=== PATIENT | female | born 1980 | race Caucasian/White ===

== ENCOUNTER 2016-10-08 21:25 | Emergency (ER) | payer BC ==
[2016-10-08] MEDS ORDERED: Sodium Chloride 0.9% 10 ML Syringe FLUSH PRN (21:31)
[2016-10-08] MEDS ORDERED: Sodium Chloride 0.9% 1,000 ML IV ONE ×2 (21:54→23:00)
[2016-10-08] MEDS ORDERED: Ondansetron 4 MG/2 ML SDV IVPUSH ONE (21:55)
--- NOTE | 2016-10-08 22:00 | EDM.PDOC ---
ED HPI GENERAL MEDICAL PROBLEM - General Chief Complaint: Headache Stated Complaint: headache Time Seen by Provider: 10/08/16 21:44 Source of Information: Reports: Patient History Limitations: Reports: No Limitations - History of Present Illness INITIAL COMMENTS - FREE TEXT/NARRATIVE: Patient complains of headache and photophobia since two evenings ago when she fell and reportedly hit her head on a futon. No LOC. Has tenderness right forehead. Complains of right frontal headache. Also has had nausea and dry heaves. Pain has been constant/unchanging. No history of migraines or similar pain in past. Says she has tried ibuprofen as well as tylenol without any improvement. No bowel changes. No fevers/chills. Denies vision/hearing changes. No dental/jaw /nasal complaints. Denies neck pain. No neuro changes reported. When asked if she has any chronic medical issues patient denied any active issues. Review of records shows prior diagnoses of anxiety/panic disorder as well as ETOH misuse. 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: Psychiatric History: Reports: Anxiety, Panic Attack Social & Family History - Tobacco Use Smoking Status *Q: Current Every Day Smoker Years of Tobacco use: 19 Packs/Tins Daily: 0.5 Second Hand Smoke Exposure: Yes - Alcohol Use Days Per Week of Alcohol Use: 1 (No previous DWIs, problems with alcohol abuse, etc.) Number of Drinks Per Day: 8 (Usually beer, however occasional hard liquor ) Total Drinks Per Week: 8 - Recreational Drug Use Recreational Drug Use: No Drug Use in Last 12 Months: No - Living Situation & Occupation Living situation: Reports: , with Family Occupation: Employed ED ROS GENERAL - Review of Systems Review Of Systems: See Below Constitutional: Reports: No Symptoms HEENT: Reports: No Symptoms. Denies: Eye Pain, Vertigo, Vision Change Respiratory: Reports: No Symptoms Cardiovascular: Reports: No Symptoms GI/Abdominal: Reports: Nausea, Vomiting. Denies: Abdominal Pain, Constipation, Diarrhea : Reports: No Symptoms Musculoskeletal: Reports: No Symptoms Skin: Reports: No Symptoms Neurological: Reports: Headache. Denies: Confusion, Dizziness, Numbness, Paresthesia, Pre-Existing Deficit, Seizure, Syncope, Tingling, Tremors, Trouble Speaking, Difficulty Walking, Weakness, Change in Speech, Gait Disturbance Psychiatric: Reports: No Symptoms - Physical Exam Exam: See Below Exam Limited By: No Limitations General Appearance: Alert, WD/WN, Other (has blanket and ice bag over face) Eye Exam: Bilateral Eye: EOMI, PERRL Ears: Normal External Exam, Normal Canal, Hearing Grossly Normal, Normal TMs Nose: Normal Inspection, Normal Mucosa, Nasal Drainage Throat/Mouth: Normal Inspection, Normal Lips, Normal Teeth, Normal Gums, Normal Oropharynx, Normal Voice, No Airway Compromise Head Exam: Facial Tenderness (just above and lateral to right brow, very mild swelling. ). No: Facial Ecchymosis, Facial Lacerations Neck: Normal Inspection, Supple, Non-Tender, Full Range of Motion. No: Lymphadenopathy (L), Lymphadenopathy (R) Respiratory/Chest: No Respiratory Distress, Lungs Clear, Normal Breath Sounds, No Accessory Muscle Use, Chest Non-Tender Cardiovascular: Normal Peripheral Pulses, Regular Rate, Rhythm, No Edema, No Murmur GI/Abdominal: Normal Bowel Sounds, Soft, Non-Tender, No Distention (Female) Exam: Deferred Rectal (Female) Exam: Deferred Neuro Exam (Abbreviated): Alert, Oriented, Normal Cognition, No Motor/Sensory Deficits Extremities: Normal Inspection, Normal Range of Motion, Non-Tender, No Pedal Edema, Normal Capillary Refill Psychiatric: Flat Affect Skin Exam: Warm, Dry, Intact, Normal Color Course - Vital Signs Last Recorded V/S: Last Vital Signs Temp 37.0 C 10/08/16 21:28 Pulse 73 10/08/16 23:00 Resp 14 10/08/16 23:00 BP 103/68 10/08/16 23:00 Pulse Ox 100 10/08/16 23:00 - Orders/Labs/Meds Orders: Active Orders 24 hr Category Date Time Status Peripheral IV Care [RC] . DIRECTED Care 10/08/16 21:31 Active Head wo Cont [CT] Stat Exams 10/08/16 21:30 Taken UA W/MICROSCOPIC [URIN] Stat Lab 10/09/16 00:00 Ordered Peripheral IV Insertion Adult [OM.PC] Routine Oth 10/08/16 21:31 Ordered Labs: Laboratory Tests 07/07/2210/08/16 10/08/16 Range/Units 21:35 21:35 21:35 WBC 11.6 H (4.0-10.2) K/uL RBC 3.74 L (3.77-5.09) M/uL Hgb 10.7 L (11.7-15.5) g/dL Hct 32.4 L (34.0-46.0) % MCV 86.6 (84.0-98.0) fL MCH 28.6 (28.2-33.3) pg MCHC 33.0 (31.7-36.0) g/dL RDW 14.8 H (11.2-14.1) % Plt Count 314 (150-350) K/uL Neut % (Auto) 59.4 (45.0-80.0) % Lymph % (Auto) 28.3 (10.0-50.0) % [place] % (Auto) 9.1 (2.0-14.0) % Eos % (Auto) 2.8 (0.0-5.0) % Baso % (Auto) 0.4 (0.0-2.0) % Neut # (Auto) 6.89 (1.40-7.00) K/uL Lymph # (Auto) 3.28 (0.50-3.50) K/uL [place] # (Auto) 1.06 H (0.00-1.00) K/uL Eos # (Auto) 0.33 (0.00-0.50) K/uL Baso # (Auto) 0.05 (0.00-0.20) K/uL Sodium 135 L D (136-145) mmol/L Potassium 4.1 (3.5-5.1) mmol/L Chloride 104 (98-107) mmol/L Carbon Dioxide 21.1 (21.0-32.0) mmol/L BUN 10 (7-18) mg/dL Creatinine 0.68 (0.51-1.17) mg/dL Est Cr Clr Drug Dosing 101.93 mL/min Estimated GFR (MDRD) > 60 mL/min Glucose 85 (74-106) mg/dL Calcium 8.1 L (8.5-10.1) mg/dL Total Bilirubin 0.3 (0.2-1.0) mg/dL AST 18 (15-37) U/L ALT 19 (12-78) U/L Alkaline Phosphatase 53 (46-116) IU/L Total Protein 6.8 (6.4-8.2) g/dL Albumin 3.6 (3.4-5.0) g/dL Ethyl Alcohol 0.068 (0.000-0.080) g/dL Meds: Medications Discontinued Medications Generic Name Dose Route Start Last Admin Trade Name Freq PRN Reason Stop Dose Admin Diphenhydramine HCl 50 mg 10/08/16 22:11 10/08/16 22:22 Benadryl IVPUSH 10/08/16 22:12 50 mg ONETIME ONE Administration Sodium Chloride 1,000 mls @ 999 mls/hr 10/08/16 21:54 10/08/16 21:55 Normal Saline IV 10/08/16 22:54 999 mls/hr .BOLUS ONE Administration Sodium Chloride 1,000 mls @ 999 mls/hr 10/08/16 23:00 10/08/16 22:58 Normal Saline IV 10/09/16 00:00 999 mls/hr .BOLUS ONE Administration Ketorolac Tromethamine 30 mg 10/08/16 22:11 10/08/16 22:21 Toradol IVPUSH 10/08/16 22:12 30 mg ONETIME ONE Administration Methylprednisolone Sodium Succinate 125 mg 10/08/16 22:10 10/08/16 22:22 Solu-Medrol IVPUSH 10/08/16 22:11 125 mg ONETIME ONE Administration Morphine Sulfate 5 mg 10/08/16 23:00 10/08/16 23:16 Morphine IM 10/08/16 23:01 5 mg ONETIME ONE Administration Ondansetron HCl 4 mg 10/08/16 21:55 10/08/16 22:00 Zofran IVPUSH 10/08/16 21:56 4 mg ONETIME ONE Administration Sodium Chloride 10 ml 10/08/16 21:31 10/08/16 22:02 Saline Flush FLUSH 10 ml ASDIRECTED PRN Administration Keep Vein Open - Radiology Interpretation CT Results Date: 10/08/16 CT Results Time: 22:05 (No acute changes intracranially. No other acute findings. ) - Re-Assessments/Exams Free Text/Narrative Re-Assessment/Exam: 10/08/16 22:07 Headache secondary to head contusion. Plan is to give IV fluids as well as nausea/pain medications. Patient to follow up with primary provider if symptoms return/persist. WBC noted to be elevated mildly. Patient denies any other problems such as cough /GI/ complaints. Hgb decreased. Patient says that is usual for her. Patient's headache much improved, down to a "4". Plan: discharge home and she is to rest/sleep. No additional activity this week. Follow up as needed at clinic if pain persists. Return to ER if there is worsening problems. Departure - Departure Time of Disposition: 23:30 Disposition: Home, Self-Care 01 Condition: Good Clinical Impression: Migraine Head contusion Qualifiers: Encounter type: initial encounter Contusion of head detail: other part of head Qualified Code(s): S00.83XA - Contusion of other part of head, initial encounter Anemia Qualifiers: Anemia type: unspecified type Qualified Code(s): D64.9 - Anemia, unspecified Clinical Impression: (Ruled Out): Headache - Discharge Information Instructions: Head Injury, Adult, [id number] Referrals: PCP,None [Primary Care Provider] - Forms: ED Department Discharge Additional Instructions: Home, rest. Drink plenty of fluids. OK to use Tylenol or Ibuprofen or Aleve. If pain does not remain improved, follow up tomorrow at clinic for recheck. If needed, return to ER. As discussed, your white blood cell count was slightly elevated tonight, and your hemaglobin was 10.7 Recommend follow up for further evaluation of your hemoglobin level. - My Orders Last 24 Hours: My Active Orders 10/08/16 21:30 Head wo Cont [CT] Stat 10/08/16 21:31 Peripheral IV Care [RC] . DIRECTED Peripheral IV Insertion Adult [OM.PC] Routine 10/09/16 00:00 UA W/MICROSCOPIC [URIN] Stat - Assessment/Plan Last 24 Hours: My Active Orders 10/08/16 21:30 Head wo Cont [CT] Stat 10/08/16 21:31 Peripheral IV Care [RC] . DIRECTED Peripheral IV Insertion Adult [OM.PC] Routine 10/09/16 00:00 UA W/MICROSCOPIC [URIN] Stat
[2016-10-08] MEDS ORDERED: methylPREDNISolone Sodium Succinate 125 MG/2 ML SDV IVPUSH ONE (22:10)
[2016-10-08] MEDS ORDERED: diphenhydrAMINE 50 MG/ML SDV IVPUSH ONE (22:11)
[2016-10-08] MEDS ORDERED: Ketorolac 30 MG/ML SDV IVPUSH ONE (22:11)
[2016-10-08 22:38] LABS: CHLORIDE,CL 104 mmol/L (98-107); SODIUM,NA 135 mmol/L (136-145)
[2016-10-08] MEDS ORDERED: Morphine 10 MG/ML Syringe IM ONE (23:00)
[2016-10-08 23:01] VITALS: BP 103/68
== END 2016-10-09 00:15 | disposition home or self-care (01) ==
LOC: LL.ED 21:25
DX: R51 Headache (principal); S00.93XA Contusion of unspecified part of head, initial encounter; W18.30XA Fall on same level, unspecified, initial encounter; D64.9 Anemia, unspecified
CPT/HCPCS: 36415; 70450; 80053; 81001; 85025; 96361; 96372; 96374; 96375; 99284; G0480; J1200; J1885; J2270; J2405; J2930; J7030; J7050

== ENCOUNTER 2018-01-02 19:41 | Emergency (ER) | payer BC ==
--- NOTE | 2018-01-02 19:46 | EDM.PDOC ---
ED HPI GENERAL MEDICAL PROBLEM - General Chief Complaint: Head Injury Stated Complaint: drinking, fell and hit head on corner of wall Time Seen by Provider: 01/02/18 19:41 Source of Information: Reports: Patient, Family (), Old Records ([facility] EMR. No paper hospital chart available.) History Limitations: Reports: Intoxication - History of Present Illness INITIAL COMMENTS - FREE TEXT/NARRATIVE: Patient was brought to the emergency room via private automobile by her for evaluation of a minor head injury, which occurred at about 19:25 hours this evening. She apparently has been drinking quite heavily this evening and did slip and fall at the bar with a minor right head contusion without history of diplopia, loss of consciousness, change in mental status, nausea, emesis, visual changes, back pain, paresthesias, neurological deficits, etc. There was some mild exacerbation of her chronic neck pain, which she is currently not concerned about. Patient apparently had a head concussion about 1-1/2 years ago with concerned that she may have once again had a concussion despite absence of symptoms. The patient denies any chest pain/pressure, heart flutter, dizziness, orthostasis, orthopnea, diaphoresis, paresthesias, recent decreased exercise tolerance, or any other anginal-type symptoms. No recent history of abdominal pain, heartburn, nausea, diarrhea, melena, gross hematochezia, or any food intolerance, including fatty foods, etc.. The patient also denies any recent fever, cough, wheezing, dyspnea, etc.. She complains of moderate right head pain from the fall, which is not able to rate. Onset: Today, Sudden Onset Date: 01/02/18 Onset Time: 19:25 Duration: Constant Location: Reports: Head, Neck (Mild as above). Denies: Face, Chest, Abdomen, Back, Pelvis, Upper Extremity, Left, Upper Extremity, Right, Lower Extremity, Left, Lower Extremity, Right, Radiates to Quality: Reports: Same as Previous Episode Severity: Moderate Improves with: Reports: None Worsens with: Reports: None Context: Reports: Trauma (As above) Associated Symptoms: Reports: Other (Intoxication). 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 Denies: Fracture Neurological History: Reports: Concussion, Head Trauma, Other (See Below) Other Neuro History: Head concussion in about 2017 Psychiatric History: Reports: Anxiety, Depression, Panic Attack Endocrine/Metabolic History: Reports: Hypothyroidism, Other (See Below) Other Endocrine/Metabolic History: Hypothyroidism during first only? Hematologic History: Reports: Anemia, Iron Deficiency, Other (See Below) (Iron deficiency anemia during only) - Past Surgical History HEENT Surgical History: Reports: Myringotomy w Tube(s), Oral Surgery, Other ( See Below) Other HEENT Surgeries/Procedures: PE tubes as a child. [place] teeth extraction 3 at age 17 with subsequent teeth extractions GI Surgical History: Reports: Cholecystectomy, Other (See Below) Other GI Surgeries/Procedures: Laparoscopic cholecystectomy at about age 30 - Past Imaging History Past Imaging History: Reports: Ultrasound (Gallbladder ultrasound at age 30) Social & Family History - Family History Respiratory: Reports: COPD, Other (See Below) Other Respiratory Family Hisory: Mother with COPD and history of tobacco use - Tobacco Use Smoking Status *Q: Current Every Day Smoker Tobacco Use Within Last Twelve Months: Cigarettes Years of Tobacco use: 29 Packs/Tins Daily: 0.5 Used Tobacco, but Quit: No Month/Year Tobacco Last Used: Maximum previous use of 0.75 packs per day Smoking Cessation Information Provided To Patient: Yes Second Hand Smoke Exposure: Yes Source of Second Hand Smoke Exposure: smokes Second Hand Smoke Education Provided: Yes - Recreational Drug Use Recreational Drug Use: No Drug Use in Last 12 Months: No - Living Situation & Occupation Living situation: Reports: (2004 with one child from this marriage with 3 other children from a previous relationship), with Family 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 ED EXAM, HEAD INJURY - Physical Exam Exam: See Below Exam Limited By: Intoxication General Appearance: Alert, WD/WN, No Apparent Distress, Anxious (Moderate) Head: Normocephalic, Scalp Swelling (Mild localized tenderness and swelling over the right lateral frontal and parietal area with no evidence deformity, crepitation, fracture, etc.), Scalp Tenderness (As above). No: Scalp Lacerations, Scalp Abrasions, Scalp Ecchymosis, Scalp Hematoma, Boo's Sign, Facial Ecchymosis, Facial Swelling, Sinus Tenderness, Facial Tenderness, Raccoon Eyes Nexus Criteria: Posterior, Midline Cervical Tenderness, Evidence of Intoxication , Altered Level of Consciousness, Focal Neurological Deficit, Painful Distraction Injuries Eyes: Bilateral Eye: EOMI, Normal Fundi, Normal Inspection (No nystagmus), PERRL Ears: Normal External Exam, Normal Canal, Hearing Grossly Normal, Normal TMs Nose: Normal Inspection, Normal Mucousa, No Blood Throat/Mouth: Normal Inspection, Normal Lips, Normal Teeth, Normal Gums, Normal Oropharynx, Normal Voice, No Airway Compromise Neck: Non-Tender, Full Range of Motion, Normal Alignment, Normal Inspection, Other (No spasms) Respiratory: No Respiratory Distress, Lungs Clear, Normal Breath Sounds, No Accessory Muscle Use, Chest Non-Tender. No: Pleural Rub, Retractions Cardiovascular: Normal Peripheral Pulses, Regular Rate, Rhythm, No Edema, No Gallop, No JVD, No Murmur, No Rub. No: Gallop/S3, Gallop/S4, Friction Rub GI/Abdominal Exam: Normal Bowel Sounds, Soft, Non-Tender, No Organomegaly, No Distention, No Abnormal Bruit, No Mass, Pelvis Stable. No: Guarding (Female) Exam: Deferred Rectal (Female) Exam: Deferred Back Exam: Normal Inspection, Full Range of Motion. No: CVA Tenderness (L), CVA Tenderness (R), Muscle Spasm Extremities: Normal Inspection, Normal Range of Motion, Non-Tender, No Pedal Edema, Normal Capillary Refill. No: Aleksandra's Sign Neurologic: medical resident II-XII nml As Tested, No Motor/Sensory Deficits, Alert, Normal Mood/Affect, Oriented x 3, Other (Moderate intoxication) Skin: Normal Color, Warm/Dry, Tattoo(s) - Warren Coma Score Best Eye Response (Warren): (4) Open Spontaneously Best Verbal Response (Epworth): (5) Oriented Best Motor Response (Warren): (6) Obeys Commands Warren Total: 15 Course - Vital Signs Last Recorded V/S: Refused by the patient - Orders/Labs/Meds Labs: None Meds: None - Radiology Interpretation Free Text/Narrative:: None Departure - Departure Time of Disposition: 19:50 Disposition: Home, Self-Care 01 Condition: Good Clinical Impression: Contusion, Intoxication, Tobacco abuse counseling, Asthma - Discharge Information *PRESCRIPTION DRUG MONITORING PROGRAM REVIEWED*: Not Applicable *COPY OF PRESCRIPTION DRUG MONITORING REPORT IN PATIENT MACARIO: Not Applicable Instructions: Steps to Quit Smoking, [id number], Concussion, Adult, Easy-to- Read, Facial or Scalp Contusion, [id number] Forms: ED Department Discharge Additional Instructions: 1. Follow up with your regular provider in 10-14 days as needed, if symptoms persist. Bring these discharge instructions with you to that visit.. 2. Tylenol 650 mg by mouth every 4 hours when necessary as directed. No aspirin , Aleve, ibuprofen, or other NSAIDs for 48 hours secondary to head injury 3. Head precautions as directed-see form. 4. Closely observe patient until she is no longer intoxicated and/or at least 24 hours. 5. Fall precautions as discussed 6. Stop all tobacco use SHOSHANA as directed/per provided information and consider contacting Quit LIne, etc.. - Problem List & Annotations (1) Head contusion SNOMED Code(s): 482900117, 455556269 Code(s): S00.93XA - CONTUSION OF UNSPECIFIED PART OF HEAD, INITIAL ENCOUNTER Status: Acute Priority: High Onset Date: 01/02/18 Annotation/Comment:: Minor head contusion without evidence of concussion. Note significant intoxication with her agreeing to watch her closely as per discharge instructions. Head precautions given. She does not need a work excuse by their history. Qualifiers: Encounter type: initial encounter Contusion of head detail: other part of head Qualified Code(s): S00.83XA - Contusion of other part of head, initial encounter (2) Intoxication SNOMED Code(s): 65418928 Code(s): SWS0661 - Status: Acute Priority: High Onset Date: 02/07/15 Annotation/Comment:: Previous evaluation the emergency room for intoxication with suspicions of possible alcohol abuse. Patient her denied this, however. She was somewhat uncooperative with the nurse and refused vital signs, etc. (3) Tobacco abuse counseling SNOMED Code(s): 009221561, 180101804, 756287116 Code(s): Z71.6 - TOBACCO ABUSE COUNSELING Status: Chronic Priority: Medium Annotation/Comment:: The patient and her were once again strongly encouraged to quit smoking SHOSHANA with information provided at discharge. (4) Asthma SNOMED Code(s): 086948262 Code(s): J45.909 - UNSPECIFIED ASTHMA, UNCOMPLICATED Status: Chronic Priority: Medium Annotation/Comment:: No recent fever or bronchitic type symptoms Qualifiers: Asthma severity: mild Asthma persistence: intermittent Asthma complication type: uncomplicated Qualified Code(s): J45.20 - Mild intermittent asthma, uncomplicated - Problem List Review Problem List Initiated/Reviewed/Updated: Yes - Assessment/Plan Assessment:: As above Plan: As above. Extensive precautions were given to the patient and her , who joss in agreement with the treatment plan. See Patient Instructions for further treatment and plan.
== END 2018-01-02 20:20 | disposition home or self-care (01) ==
LOC: LL.ED 19:41
DX: S00.03XA Contusion of scalp, initial encounter (principal); S00.83XA Contusion of other part of head, initial encounter; F10.129 Alcohol abuse with intoxication, unspecified; J45.909 Unspecified asthma, uncomplicated; Z71.6 Tobacco abuse counseling; F17.210 Nicotine dependence, cigarettes, uncomplicated; W01.198A Fall on same level from slipping, tripping and stumbling with subsequent striking against other object, initial encounter
CPT/HCPCS: 99282

== ENCOUNTER 2023-02-16 22:38 | Emergency (ER) | payer BC ==
[2023-02-16 22:58] VITALS: BP 138/71; PULSE 80
[2023-02-16] MEDS ORDERED: oxyCODONE 5 MG Tab PO ONE (23:51)
[2023-02-16] MEDS ORDERED: Ketorolac 30 MG/ML SDV IM ONE (23:51)
== END 2023-02-17 00:19 | disposition home or self-care (01) ==
LOC: LL.ED 22:38
DX: S89.91XA Unspecified injury of right lower leg, initial encounter (principal); F17.210 Nicotine dependence, cigarettes, uncomplicated; Z90.49 Acquired absence of other specified parts of digestive tract; X58.XXXA Exposure to other specified factors, initial encounter
CPT/HCPCS: 73590-RT; 96372; 99283; A9270-GY; J1885

== ENCOUNTER 2023-07-27 23:22 | Emergency (ER) | payer OTHER, BC ==
[2023-07-27 23:52] LABS: BASOPHILS ABSOLUTE AUTO 0.05 K/uL (0.00-0.20); BASOPHILS PERCENT AUTO 0.5 % (0.0-2.0); EOSINOPHILS ABSOLUTE AUTO 0.21 K/uL (0.00-0.50); HEMATOCRIT 34.6 % (34.0-46.0); HEMOGLOBIN 11.5 g/dL (11.7-15.5); LYMPHOCYTES ABSOLUTE AUTO 3.67 K/uL (0.50-3.50); LYMPHOCYTES PERCENT AUTO 35.1 % (10.0-50.0); MEAN CORPUSCULAR HEMOGLOBIN 28.7 pg (28.2-33.3); MEAN CORPUSCULAR HGB CONC 33.2 g/dL (31.7-36.0); MEAN CORPUSCULAR VOLUME 86.3 fL (84.0-98.0); MONOCYTES ABSOLUTE AUTO 1.25 K/uL (0.00-1.00); NEUTROPHILS ABSOLUTE AUTO 5.27 K/uL (1.40-7.00); NEUTROPHILS PERCENT AUTO 50.4 % (45.0-80.0); PLATELET COUNT,PLT 417 K/uL (150-350); RED BLOOD CELL COUNT 4.01 M/uL (3.77-5.09); RED CELL DISTRIBUTION WIDTH 13.4 % (11.2-14.1); WHITE BLOOD CELL COUNT,WBC 10.5 K/uL (4.0-10.2)
[2023-07-28 00:31] VITALS: BP 103/86; PULSE 70
[2023-07-28 00:32] LABS: ALBUMIN 3.9 g/dL (3.4-5.0); BILIRUBIN TOTAL 0.3 mg/dL (0.2-1.0); CALCIUM 8.3 mg/dL (8.5-10.1); CARBON DIOXIDE,CO2 17.4 mmol/L (21.0-32.0); CREATININE 0.64 mg/dL (0.51-1.17); EST CRCL DRUG DOSING (CG) 96.86 mL/min; ETHANOL BLOOD MEDICAL 0.267 g/dL (0.000-0.080); POTASSIUM,K 3.4 mmol/L (3.5-5.1); PROTEIN TOTAL,TP 7.2 g/dL (6.4-8.2)
[2023-07-28] MEDS: Ondansetron 4 MG Tab.DIS PO ONE (00:41)
[2023-07-28] MEDS: Acetaminophen 325 MG Tab PO ONE (00:41)
== END 2023-07-28 02:00 | disposition home or self-care (01) ==
LOC: LL.ED 23:22
DX: S69.91XA Unspecified injury of right wrist, hand and finger(s), initial encounter (principal); R07.89 Other chest pain; F10.20 Alcohol dependence, uncomplicated; F17.200 Nicotine dependence, unspecified, uncomplicated; V47.5XXA Car driver injured in collision with fixed or stationary object in traffic accident, initial encounter
CPT/HCPCS: 36415; 71111; 73140-F9; 80053; 80307; 83605; 84484; 85025; 93005; 99285; A9270-GY